=== PATIENT | female | born 1980 | race Two or more races ===

== ENCOUNTER 2024-03-26 12:06 | Emergency (ER) | payer MEDICAID, SELFPAY ==
[2024-03-26 12:08] VITALS: BP 132/78; PULSE 56; RESP 19; TEMP 36.7; O2SAT 98; BMI 31.6
--- NOTE | 2024-03-26 12:24 | EDNOTE_ITS ---
ED Abdominal Pain RME/HPI General Chief Complaint: Abdominal Pain Stated complaint: ABD PAIN Time seen by provider: 03/26/24 12:11 Arrival date/time: 03/26/24 12:06 This is a 43-year-old female who presents to the emergency department with complaints of right flank pain x 2 days. History of nephrolithiasis. Reports that yesterday she began to have some mild dysuria and suprapubic pain. And now has progressed to right flank pain. Reports was sent over by PCP. No fever, cough, shortness of breath, chest pain, chills, abdominal pain, diarrhea, hematochezia, melena, focal weakness, fall, blunt trauma, loss of consciousness, incontinence Source: patient Related Data Home Medications ?Medication ?Instructions ?Recorded ?Confirmed levothyroxine 125 mcg tablet 125 mcg PO DAILY 05/04/18 05/28/19 norgestimate-ethinyl estradiol 1 tab PO DAILY 05/04/18 05/28/19 0.18 mg/0.215mg/0.25mg-35 mcg(28)tablet (Tri-Sprintec (28)) clonazepam 0.5 mg tablet 0.5 mg PO BID 05/28/19 05/28/19 sertraline 50 mg tablet 50 mg PO QDAY 05/28/19 05/28/19 Previous Rx's ?Medication ?Instructions ?Recorded ibuprofen 800 mg tablet 800 mg PO TID PRN pain #30 tabs 05/28/19 ibuprofen 800 mg tablet 800 mg PO TID PRN pain #30 tabs 12/01/21 ondansetron 4 mg disintegrating 4 mg PO Q8H PRN nausea and 12/22/22 tablet vomiting #15 tabs cephalexin 500 mg capsule 1,000 mg (2 x 500 mg) PO Q8H 7 03/26/24 days #42 caps ibuprofen 800 mg tablet (IBU) 800 mg PO Q8H #20 tabs 03/26/24 tamsulosin 0.4 mg capsule (Flomax) 0.4 mg PO QDAY 5 days #5 caps 03/26/24 Allergies Allergy/AdvReac Type Severity Reaction Status Date / Time No Known Allergies Allergy Verified 12/21/22 21:13 Review of Systems Review of Systems Systems Reviewed: All systems reviewed, normal except as documented Narrative Review of Systems: Gen: No fever, no chills, no weight loss EYES: No discharge, no visual changes, no pain HEENT: No ear pain, no congestion, no sore throat PULM: No shortness of breath, no cough, no congestion CV: No chest pain, no dyspnea on exertion, no palpitations GI: No nausea, no vomiting, no diarrhea, no pain, no constipation : No frequency, no urgency,? no dysuria, + right flank pain Musc/skel: No joint pain, no back pain Skin: No rash? Psyc: No hallucinations, no depression Heme/Lymph: No easy bleeding or bruising tendencies Neuro: No weakness, no headache Past Medical History Past Medical History CARDIAC: Negative Congestive Heart Failure RESPIRATORY: Negative Chronic Obstructive Pulmonary Disease (COPD) GENITOURINARY: Negative Renal Disease ENDOCRINE: Positive Hypothyroidism; Negative Diabetes Mellitus Type 1 or Diabetes Mellitus Type 2 PSYCHO/SOCIAL: Positive Anxiety OTHER HISTORY: Positive Blood Transfusions Surgical History SURGICAL: Positive Abdominal Surgery (gallbladder removed) and Section Social History SMOKING STATUS: Never smoker SUBSTANCE USE: does not use ED Exam Narrative Physical exam: General: Sittiing in Exam table in no acute distress, answering questions appropriately HENT: normocephalic, atraumatic, EOMI, PERRLA, moist mucous membranes Chest: chest wall is nontender Cardiac: regular rate and rhythm, normal S1 and S2, no murmurs, rubs, or gallops, capillary refill ?2 seconds Pulmonary: clear to auscultation bilaterally, no wheezing, crackles, or rhonchi Abdominal: active bowel sounds, soft, nontender, nondistended, + mild right CVA tenderness Neuro: A&OX3, CN II-XII intact, sensation grossly intact bilaterally in UE and LE. Skin: no rashes, no ecchymosis Ext: no lower extremity edema Course Quality Measures none Orders Category Date Time Status CT abdomen pelvis wo con Stat Exams 03/26/24 12:23 Completed CBC Stat Lab 03/26/24 12:46 Completed Comprehensive Metabolic Panel Stat Lab 03/26/24 12:46 Completed HCG Qualitative,Urine Stat Lab 03/26/24 12:40 Completed Lipase Stat Lab 03/26/24 12:46 Completed Urinalysis Stat Lab 03/26/24 12:40 Completed Urine Culture Stat Lab 03/26/24 12:40 Received Ketorolac Inj [Toradol Inj] Med 03/26/24 13:49 Discontinued 60 mg IM X1 ONE Tamsulosin HCl [Flomax] Med 03/26/24 13:49 Discontinued 0.4 mg PO X1 ONE Vital Signs Vital signs: Vital Signs Temperature 98.1 F 03/26/24 12:08 Pulse Rate 56 L 03/26/24 12:08 Respiratory Rate 19 03/26/24 12:08 Blood Pressure 132/78 H 03/26/24 12:08 Pulse Oximetry (%) 98 03/26/24 12:08 Oxygen Delivery Method Room Air 03/26/24 12:08 Abdominal Pain MDM MDM Narrative MDM Narrative:: This is a 43-year-old female who presents to the emergency department with complaints of right flank pain x 2 days. History of nephrolithiasis. Reports that yesterday she began to have some mild dysuria and suprapubic pain. And now has progressed to right flank pain. Patient is not ill-appearing nontoxic. Vital signs stable no fever. Patient's labs reviewed no loose go cytosis or bandemia. Urinalysis but positive for gross hematuria however no WBCs. PT is positive for 2 mm stone with mild hydronephrosis. Pain medication and Flomax was given while in ED. The time of reevaluation patient is stable no pain patient will be discharged home with NSAID, Flomax and a prescription for antibiotics. Clearly advised to follow-up with her PCP and she might need a urology referral. Strict ER precautions given to return Patient data External records reviewed:: [facility] previous records Clinical information provided by:: patient Social determinants that could affect healthcare access:: none Patient has the following chronic illnesses:: Nephrolithiasis How is presenting disease/condition affected by chronic disease/condition?: exacerbated by Evaluation data The following diagnostics were reviewed and interpreted by me:: lab results and radiology exam(s) Lab and/or radiology exams considered but not ordered:: yes Interpretation Summary: Examination: CT abdomen and pelvis without contrast. Coronal 3-D reconstructions. Sagittal 2-D reconstructions. Date and time of exam:March 26, 2024 1334 hours Comparison January 15, 2023 INDICATIONS: Onset right-sided flank pain this morning, history 4 mm right renal calculus on CT study January 15, 2023 CTDI: vol (mGy): 8.61 DLP: (mGycm): 488 Technique: Axial images of the abdomen have been obtained, 3 mm slice thickness Intravenous contrast material has not been administered. Low dose protocols were performed. One or more of the following dose reduction techniques were used; automated exposure control, adjustment of the mA and/or KV according to patient size, use of iterative reconstruction technique. Findings: No focal liver or splenic lesions Absent gallbladder No pancreatic or adrenal mass 5 mm right renal calculus with depressed renal scar Minimal right hydronephrosis secondary to 2 mm distal right ureterovesical junction calculus Normal appendix No pelvic mass Bladder intact IMPRESSION: Minimal right hydronephrosis secondary to 2 mm distal right ureterovesical junction calculus Medications / Prescriptions Medications or Prescriptions considered but not ordered:: yes Medication administrations:: Medication Administration History Discontinued Medications Ketorolac Tromethamine (Ketorolac Inj 60 Mg/2 Ml Vial) 60 mg IM X1 ONE Stop: 03/26/24 13:50 Last Admin: 03/26/24 14:19 Dose: 60 mg Documented By: Tamsulosin HCl (Tamsulosin Hcl 0.4 Mg Capsule) 0.4 mg PO X1 ONE Stop: 03/26/24 13:50 Last Admin: 03/26/24 14:19 Dose: 0.4 mg Documented By: All medications administered and effective Consultations Consultation(s) initiated? (list below): No Diagnosis Differential diagnosis abdominal pain: abdominal pain, calculus of kidney, constipation, gastroenteritis, pancreatitis and other (Urinary tract infection) Most likely diagnosis given after review of the tests above:: Calculus of kidney with renal colic Admission Indicated Admission indicated?: not indicated Admission Request Was there a request for admission?: No Disposition Plan Disposition Plan: Discharge Discharge Attestation Discharge Attestation: The patient and all family members were given an opportunity to ask questions and understood the discharge instructions. Discharge instructions specifically effects, indications for sooner follow up or return to the emergency department, and the expected course of current diagnosis. Patient condition: Stable Discharge Plan Plan Patient Disposition: HOME (Self Care) Patient condition on transfer: Stable Prescriptions/Referrals Prescriptions/Med Rec: New tamsulosin [Flomax] 0.4 mg capsule 0.4 mg PO QDAY 5 Days Qty: 5 0RF ibuprofen [IBU] 800 mg tablet 800 mg PO Q8H Qty: 20 0RF cephalexin 500 mg capsule 1,000 mg PO Q8H 7 Days Qty: 42 0RF No Action norgestimate-ethinyl estradiol [Tri-Sprintec (28)] 0.18/0.215/0.25 mg-35 mcg (28) Tablet 1 tab PO DAILY levothyroxine 125 mcg Tablet 125 mcg PO DAILY ibuprofen 800 mg tablet 800 mg PO TID PRN (Reason: pain) Qty: 30 0RF clonazepam 0.5 mg Tablet 0.5 mg PO BID sertraline 50 mg Tablet 50 mg PO QDAY Rx Instructions: started feeling sick with sertraline ibuprofen 800 mg tablet 800 mg PO TID PRN (Reason: pain) Qty: 30 0RF ondansetron 4 mg tablet,disintegrating 4 mg PO Q8H PRN (Reason: nausea and vomiting) Qty: 15 0RF Referrals: Kevin([facility])Cuco NP [Primary Care Provider] - In 1 week Problem List Clinical Impression: Nephrolithiasis Patient/Caregiver Discharge Instructions Discharge Activity: activity as tolerated Education Materials: ED Kidney Stone w/ Colic Additional Instructions: CT demonstrates a very small 2 mm kidney stone. You will need to drink plenty of fluids, 2 medications were sent to pharmacy for pain and dilation for passing the stone. It is very important that you follow-up with your primary doctor 2 to 3 days for follow-up care. You will need a urology referral for follow-up care return to the emergency department this any worsening symptoms or change in condition Print Language: Faroese Stand Alone Forms: Milagros Award Info., Patient Portal Info Letter ANTHONY/CRYSTAL Supervising Physician ANTHONY/CRYSTAL Supervising Physician: Dr. Pena
[2024-03-26 13:01] LABS: Collection Type, Urine Clean Catch; WBC,Urine 0 /hpf (0-5)
[2024-03-26 13:02] LABS: Basophils % (Auto) 0 % (0-2.5); Eosinophils # (Auto) 0.1 Thou/mm3 (0.0-0.5); Eosinophils % (Auto) 1 % (0-10); Hematocrit 39.4 % (36.0-46.0); Hemoglobin 13.1 g/dL (12.0-16.0); Immature Granulocytes % (Auto) 0 % (0-0); Immature Granulocytes Auto 0.01 Thou/mm3 (0.00-0.00); Lymphocytes # (Auto) 3.1 Thou/mm3 (1.0-4.8); Lymphocytes % (Auto) 35 % (10-50); Mean Corpuscular HGB Conc 33.2 g/dl (31.0-37.0); Mean Corpuscular Hemoglobin 29.7 pg (25.0-35.0); Mean Corpuscular Volume 89 fL (80-100); Monocytes # (Auto) 0.8 Thou/mm3 (0.0-0.8); Monocytes % (Auto) 9 % (0-12); Neutrophils # (Auto) 4.9 Thou/mm3 (1.8-7.7); Neutrophils % (Auto) 55 % (37-80); Nucleated Red Blood Cell % 0 /100 WBC (0); Platelet Count 222 Thou/mm3 (140-440); Red Blood Count 4.41 Miln/mm3 (4.00-5.20); White Blood Count 8.9 Thou/mm3 (3.6-11.0)
[2024-03-26 13:21] LABS: Alanine Aminotransferase 16 U/L (10-49); Albumin, Serum 4.3 gm/dL (3.5-5.0); Albumin/Globulin Ratio 1.5 (1.2-2.2); Alkaline Phosphatase 105 U/L (46-116); Anion Gap 5 (7-16); BUN/Creatinine Ratio 14 Ratio (12-20); Bilirubin,Total 0.4 mg/dL (0.3-1.2); Blood Urea Nitrogen 11 mg/dL (9-23); Calcium 9.4 mg/dL (8.3-10.6); Calcium (Corrected) 9.4 mg/dL (8.5-10.1); Carbon Dioxide 27.1 mMol/L (20.0-31.0); Chloride 105 mMol/L (98-107); Creatinine (Component) 0.8 mg/dL (0.6-1.3); Estimated Creatinine Clearance 89.6 mL/min (>60); Globulin 2.9 gm/dL (2.3-3.5); Glucose 92 mg/dL (74-106); Lipase 30 U/L (12-53); Osmolality,Calculated 273 (275-295); Potassium 3.8 mMol/L (3.4-5.1); Sodium 137 mMol/L (136-145); Total Protein 7.2 gm/dL (5.7-8.2); eGFR > 60 See Note
[2024-03-26 13:22] LABS: HCG Qualitative,Urine Negative
[2024-03-26 13:33] LABS: Aspartate Amino Transferase < 10 U/L (0-34)
[2024-03-26 13:38] LABS: Bilirubin,Urine Negative (Negative); Blood,Urine 3+ (Negative); Color,Urine Yellow (Lt Yel-Yel); Glucose, Urine Negative (Negative); Ketones,Urine Negative (Negative); Leukocyte Esterase,Urine Negative (Negative); Nitrite,Urine Negative (Negative); Protein,Urine 1+ (Neg - Trace); RBC,Urine 793 /hpf (0-3); Squamous Epithelial Cell,Urine 5 /hpf (0-5); Urobilinogen,Urine Negative mg/dL (0.0-1.0)
[2024-03-26 13:48] LABS: Clarity,Urine Hazy (Clear/Hazy)
[2024-03-26] MEDS: KETOROLAC INJ 60 MG/2 ML VIAL IM (14:19)
[2024-03-26] MEDS: TAMSULOSIN HCL 0.4 MG CAPSULE PO (14:19)
== END 2024-03-26 15:13 | disposition home or self-care (01) ==
PROVIDERS: Nurse Practitioner Primary Care; Emergency Provider Emergency Medicine; PCP Nurse Practitioner Family
DX: N13.2 Hydronephrosis with renal and ureteral calculous obstruction (principal)
CPT/HCPCS: 36415; 74176; 80053; 81001; 81025; 83690; 85025; 87086; 96372; 99284; J1885; A9270

== ENCOUNTER → 2024-03-27 | Outpatient (CLI) | payer MEDICAID, SELFPAY ==
--- NOTE | 2024-03-27 | XR_ITS ---
Examination: Retroperitoneal ultrasound, complete Technique: Multiple high resolution grayscale images of the retroperitoneum obtained, including kidneys and bladder. Exam date and time:March 27, 2024 1118 hours INDICATIONS: Hematuria on laboratory examination yesterday, right flank pain intermittent one year FINDINGS: Right kidney 10.9 x 5.9 x 5.2 cm cortex 1.5 cm Left kidney 11.9 x 4.6 x 4.5 cm cortex 1.6 cm Mild bilateral renal parenchymal scar formation Right kidney midpole 11 mm calculus upper pole 5 mm calculus Left kidney upper pole 10 mm cyst No bladder mass or bladder calculi Bladder prevoid volume 106 cc IMPRESSION: Bilateral renal cortical thinning Mild bilateral renal parenchymal scar formation Nonobstructing right renal calculi
== END | disposition home or self-care (01) ==
LOC: CDIM 11:05
PROVIDERS: PCP Nurse Practitioner Family; Referring Provider Nurse Practitioner Family; Visit Provider Nurse Practitioner Family
DX: N28.89 Other specified disorders of kidney and ureter (principal); N20.0 Calculus of kidney
CPT/HCPCS: 76770

== ENCOUNTER → 2024-05-01 | Outpatient (BNVA) | payer MEDICAID, SELFPAY | END | disposition home or self-care (01) | PROVIDERS: PCP Nurse Practitioner Family; Referring Provider Nurse Practitioner Family; Visit Provider Urology | DX: N13.2 Hydronephrosis with renal and ureteral calculous obstruction (principal); Z98.84 Bariatric surgery status; Z87.442 Personal history of urinary calculi; E03.9 Hypothyroidism, unspecified; K21.9 Gastro-esophageal reflux disease without esophagitis; F41.9 Anxiety disorder, unspecified; G47.33 Obstructive sleep apnea (adult) (pediatric) | CPT/HCPCS: 81003; 99212; G0463 ==

== ENCOUNTER → 2024-10-02 | Outpatient (CLI) | payer MEDICAID, SELFPAY ==
--- NOTE | 2024-10-02 10:30 | XR_ITS ---
Examination: Breast ultrasound, unilateral, left complete Date and time of exam: 06/04/2024 1019 hours INDICATIONS: Left breast sonogram 12/28/2023 3:00 nodule 7 x 9 mm Technique: Real-time bauman scale ultrasonographic imaging performed left breast including all 4 quadrants as well as nipple retroareolar and axillary region. Findings: 2:00 cyst 5 x 5 mm 3:00 cyst 6 x 4 mm No solid nodules IMPRESSION: BI-RADS Category 2: Benign findings
--- NOTE | 2024-10-02 11:15 | XR_ITS ---
Examination: Diagnostic digital mammography, bilateral Computer aided detection 3-D breast Tomosynthesis, bilateral Date and time of exam: October 02, 2024 1027 hours INDICATIONS: Mammogram November 30, 2023 8 mm nodule inner upper left breast 12 mm focal asymmetry upper right breast MLO view Technique: Nonmagnified MLO, CC views of the breasts to been obtained, reconstructed from 3-D Tomosynthesis images. R2 computer aided detection program utilized for evaluation of suspicious masses and/or abnormal calcifications. 3-D Tomosynthesis images obtained. Findings: The breasts are heterogeneously dense, which may obscure small masses No left breast abnormality depicted Focal asymmetry 12:00 position right breast anterior depth,. Impression: BI-RADS Category 0: Incomplete: Need additional imaging evaluation Recommend right breast sonography follow-up to assess 12:00 focal asymmetry right breast.
== END | disposition home or self-care (01) ==
LOC: CDIM 10:11
PROVIDERS: Referring Provider Nurse Practitioner Family; Visit Provider Nurse Practitioner Family
DX: N64.89 Other specified disorders of breast (principal)
CPT/HCPCS: 76641; 77062; 77066; G0279

== ENCOUNTER 2024-10-30 17:36 | Emergency (ER) | payer MEDICAID, SELFPAY ==
[2024-10-30 17:36] VITALS: BMI 25.3
[2024-10-30 17:42] VITALS: BP 133/87; PULSE 98; RESP 18; TEMP 36.7; O2SAT 99
[2024-10-30 17:47] VITALS: BP 116/67; PULSE 90; RESP 18; TEMP 37.1; O2SAT 98
--- NOTE | 2024-10-30 17:51 | XR_ITS ---
Examination: Pelvic ultrasound, transabdominal, complete Technique: Transabdominal ultrasound of the pelvis performed using grayscale imaging Date and time of exam: October 30, 2024 8004 hours INDICATIONS: Pelvic pain and vaginal bleeding beginning 2 hours ago, uterine body and fundal areas of fibroid degeneration of pelvic sonogram June 12, 2023 FINDINGS: Uterus 9.0 cm, enlarging left fundal area of fibroid degeneration 3.1 x 2.6 x 2.5 cm Endometrial stripe 1.3 cm Right ovary 3.2 similar to flow Left ovary 4.7 cm arterial flow IMPRESSION: Enlarging area of fundal fibroid degeneration compared to the prior study, recommend continued 6 month follow up transvaginal pelvic sonography
--- NOTE | 2024-10-30 17:51 | PD.EDRME ---
Rapid Medical Screening Exam RME Arrival date/time: 10/30/24 17:36 43-year-old female presents to the Emergency Department today for complaints of vaginal spotting Chief Complaint: Vaginal Bleeding Vital signs: Vital Signs Temperature 98.1 F 10/30/24 17:42 Pulse Rate 98 10/30/24 17:42 Respiratory Rate 18 10/30/24 17:42 Blood Pressure 133/87 H 10/30/24 17:42 Pulse Oximetry (%) 99 10/30/24 17:42 Oxygen Delivery Method Room Air 10/30/24 17:42
[2024-10-30 18:05] LABS: Basophils # (Auto) 0.0 Thou/mm3 (0.0-0.2); Basophils % (Auto) 1 % (0-2.5); Eosinophils # (Auto) 0.1 Thou/mm3 (0.0-0.5); Eosinophils % (Auto) 1 % (0-10); Hematocrit 36.1 % (36.0-46.0); Hemoglobin 12.7 g/dL (12.0-16.0); Immature Granulocytes Auto 0.02 Thou/mm3 (0.00-0.00); Lymphocytes # (Auto) 3.1 Thou/mm3 (1.0-4.8); Lymphocytes % (Auto) 36 % (10-50); Mean Corpuscular HGB Conc 35.2 g/dl (31.0-37.0); Mean Corpuscular Hemoglobin 29.7 pg (25.0-35.0); Mean Corpuscular Volume 85 fL (80-100); Monocytes # (Auto) 0.7 Thou/mm3 (0.0-0.8); Monocytes % (Auto) 8 % (0-12); Neutrophils # (Auto) 4.6 Thou/mm3 (1.8-7.7); Neutrophils % (Auto) 54 % (37-80); Nucleated Red Blood Cell # 0.00 Thou/mm3 (0.00-0.00); Nucleated Red Blood Cell % 0 /100 WBC (0); Platelet Count 248 Thou/mm3 (140-440); RDW Standard Deviation 38.6 fL (36.4-46.3); Red Blood Count 4.27 Miln/mm3 (4.00-5.20); White Blood Count 8.5 Thou/mm3 (3.6-11.0)
[2024-10-30 18:25] LABS: Alanine Aminotransferase 8 U/L (10-49); Albumin, Serum 4.5 gm/dL (3.5-5.0); Albumin/Globulin Ratio 1.7 (1.2-2.2); Alkaline Phosphatase 83 U/L (46-116); Anion Gap 11 (7-16); Aspartate Amino Transferase 16 U/L (0-34); BUN/Creatinine Ratio 11 Ratio (12-20); Bilirubin,Total 0.7 mg/dL (0.3-1.2); Blood Urea Nitrogen 10 mg/dL (9-23); Calcium 9.8 mg/dL (8.3-10.6); Calcium (Corrected) 9.8 mg/dL (8.5-10.1); Carbon Dioxide 25.3 mMol/L (20.0-31.0); Chloride 104 mMol/L (98-107); Creatinine (Component) 0.9 mg/dL (0.6-1.3); Estimated Creatinine Clearance 71.5 mL/min (>60); Globulin 2.7 gm/dL (2.3-3.5); Glucose 93 mg/dL (74-106); Osmolality,Calculated 278 (275-295); Potassium 2.9 mMol/L (3.4-5.1); Sodium 140 mMol/L (136-145); Total Protein 7.2 gm/dL (5.7-8.2); eGFR > 60 See Note
[2024-10-30 18:26] LABS: INR 1.0 (0.9-1.3); Partial Thromboplastin Time 27.0 Seconds (22.0-36.0); Prothrombin Time 11.1 Seconds (9.0-12.2)
[2024-10-30 18:53] LABS: Collection Type, Urine Clean Catch
[2024-10-30 19:08] LABS: Bilirubin,Urine Negative (Negative); Blood,Urine 3+ (Negative); Clarity,Urine Clear (Clear/Hazy); Color,Urine Yellow (Lt Yel-Yel); Culture Indicated,Urine Not Indicated; Glucose, Urine Negative (Negative); Hyaline Casts,Urine < 1 /hpf (0-1); Ketones,Urine Negative (Negative); Leukocyte Esterase,Urine Positive (Negative); Nitrite,Urine Negative (Negative); PH,Urine 6.0 (5.0-7.0); Protein,Urine Trace (Neg - Trace); RBC,Urine 5 /hpf (0-3); Specific Gravity,Urine 1.022 (1.001-1.035); Squamous Epithelial Cell,Urine 7 /hpf (0-5); Urobilinogen,Urine Negative mg/dL (0.0-1.0); WBC,Urine 7 /hpf (0-5)
[2024-10-30 19:52] LABS: HCG Qualitative,Urine Negative
--- NOTE | 2024-10-30 20:32 | PD.EDVAGBL ---
ED OB Contraction Preg RMI/HPI General Chief complaint: Vaginal Bleeding Stated complaint: VAG BLEED Time Seen by Provider: 10/30/24 17:55 Arrival date/time: 10/30/24 17:36 RME / HPI RME / HPI Narrative: 43-year-old female patient with significant history of fibroids in the past, came in for evaluation regarding vaginal bleeding. Patient had 2 menses this month, today been having worsening bleeding, severity moderate. Patient denies any dizziness denies any other complaints. Patient is currently followed by an [employer] ENGINEER. Denies any pelvic pain. Patient is ambulatory Related Data Home Medications ?Medication ?Instructions ?Recorded ?Confirmed atorvastatin 40 mg tablet 40 mg PO QHS 05/01/24 05/01/24 calcium 600 mg (as carbonate)-vit tab PO QDAY 05/01/24 05/01/24 D3 10 mcg (400 unit) chewable tablet (Calcium 600 with Vitamin D3) levothyroxine 100 mcg capsule 100 mcg PO QDAY 05/01/24 05/01/24 magnesium 200 mg tablet 200 mg PO QDAY 05/01/24 05/01/24 omeprazole 20 mg capsule,delayed 20 mg PO QDAY 05/01/24 05/01/24 release tamsulosin 0.4 mg capsule 0.4 mg PO QHS 05/01/24 05/01/24 Allergies Allergy/AdvReac Type Severity Reaction Status Date / Time No Known Allergies Allergy Verified 10/30/24 17:38 Review of Systems Review of Systems Narrative Review of Systems: Review of system reviewed and within normal limits except mentioned in HPI ED Exam Narrative Physical exam: VITAL SIGNS: Reviewed. GENERAL APPEARANCE: Alert and interactive, follows commands, no acute distress, HEAD AND FACE: Non-traumatic. ENT: PERRL, pink conjunctivitis, eyelid no trauma, Mucous membrane moist. NECK: Supple, nontender, no nuchal rigidity. CHEST: No tenderness, no crepitus, no paradoxical movement, no retractions. LUNGS: Clear, well ventilated, symmetric, no rales, no wheezing, no ronchi, no stridor, good breath sounds bilaterally. HEART: Regular rate, regular rhythm, no murmur, no gallops. ABDOMEN: Soft, positive bowel sounds, nondistended, no guarding, nontender, no rebound, no masses, RECTAL: Deferred. GENITAL: Deferred. NEUROLOGICAL: Gross motor function intact sensory function intact, Appropriate for age. MUSCULOSKELETAL: low back nontender, full range of motion. EXTREMITIES: Nontender, full range of motion. SKIN: Color pink, dry, no rash, no lacerations, no abrasions, no contusions. LYMPHATICS: Deferred. Course Quality Measures none Orders Category Date Time Status US pelvic complete Stat Exams 10/30/24 17:51 Completed CBC Stat Lab 10/30/24 17:57 Completed Comprehensive Metabolic Panel Stat Lab 10/30/24 17:57 Completed HCG Qualitative,Urine Stat Lab 10/30/24 18:34 Completed PT [Prothrombin Time with INR] Stat Lab 10/30/24 17:57 Completed PTT [Partial Thromboplastin Time] Stat Lab 10/30/24 17:57 Completed UA, C/S IF [Urinalysis, C/S if Indicated] Stat Lab 10/30/24 18:34 Completed Potassium Chloride [K-Dur] Med 10/30/24 20:10 Discontinued 40 meq PO X1 ONE Vital Signs Vital signs: Vital Signs Temperature 98.1 F 10/30/24 17:42 Pulse Rate 98 10/30/24 17:42 Respiratory Rate 18 10/30/24 17:42 Blood Pressure 133/87 H 10/30/24 17:42 Pulse Oximetry (%) 99 10/30/24 17:42 Oxygen Delivery Method Room Air 10/30/24 17:42 Vaginal Bleeding MDM Narrative MDM Narrative: 43-year-old female patient with significant history of fibroids in the past, came in for evaluation regarding vaginal bleeding. Patient had 2 menses this month, today been having worsening bleeding, severity moderate. Patient denies any dizziness denies any other complaints. Patient is currently followed by an [employer]Y ENGINEER. Denies any pelvic pain. Patient is ambulatory Patient CBC showed no sign of leukocytosis, no sign of anemia. Potassium was noted to be 2.9. The rest of the labs unremarkable patient is not . Ultrasound of the pelvis showed Enlarging area of fundal fibroid degeneration compared to the prior study, recommend continued 6 month follow up transvaginal pelvic sonography Patient data External records reviewed:: None Clinical information provided by:: patient Social determinants that could affect healthcare access:: none Patient has the following chronic illnesses:: None How is presenting disease/condition affected by chronic disease/condition?: no chronic disease Evaluation data The following diagnostics were reviewed and interpreted by me:: lab results and radiology exam(s) Lab and/or radiology exams considered but not ordered:: None Interpretation Summary: See results MDM Medications / Prescriptions Medications or Prescriptions considered but not ordered:: None Medication administrations:: Medication Administration History Discontinued Medications Potassium Chloride (Potassium Chloride 20 Meq Tabcr) 40 meq PO X1 ONE Stop: 10/30/24 20:11 Last Admin: 10/30/24 20:26 Dose: 40 meq Documented By: Potassium replacement Consultations Consultation(s) initiated? (list below): No Diagnosis Vaginal Bleeding Differential Diagnosis: threatened , dysfunctional uterine bleeding and vaginal bleeding Most likely diagnosis given after review of the tests above:: Dysfunctional uterine Admission Indicated Admission indicated?: not indicated Admission Request Was there a request for admission?: No Disposition Plan Disposition Plan: Discharge Discharge Attestation Discharge Attestation: The patient and all family members were given an opportunity to ask questions and understood the discharge instructions. Discharge instructions specifically effects, indications for sooner follow up or return to the emergency department, and the expected course of current diagnosis. Patient condition: Stable Discharge Plan Plan Patient Disposition: HOME (Self Care) Discharge Disposition comment: Stable Prescriptions/Referrals Prescriptions/Med Rec: No Action levothyroxine 100 mcg capsule 100 mcg PO QDAY omeprazole 20 mg capsule,delayed release(DR/EC) 20 mg PO QDAY atorvastatin 40 mg tablet 40 mg PO QHS tamsulosin 0.4 mg capsule 0.4 mg PO QHS Calcium 600 with Vitamin D3 600 mg-10 mcg (400 unit) tablet,chewable PO QDAY magnesium 200 mg tablet 200 mg PO QDAY Referrals: Maria A Cabrera [Primary Care Provider] - In 1 week Problem List Clinical Impression: Dysfunctional uterine bleeding Patient/Caregiver Discharge Instructions Discharge Activity: activity as tolerated Education Materials: ED Dysfunctional Uterine Bleeding Additional Instructions: Thank you for the opportunity for serving you today. You are stable for discharged . You are advised to: Follow-up with your PCP in 1 to 2 days Return to ED for worsening of symptoms Increase oral fluids Follow-up closely with your [employer] ENGINEER Today your CBC showed no sign of anemia. Print Language: Cambodian Stand Alone Forms: Milagros Award Info., Patient Portal Info Letter PA/CRYSTAL Supervising Physician ANTHONY/CRYSTAL Supervising Physician: MD Becky
== END 2024-10-30 20:53 | disposition home or self-care (01) ==
PROVIDERS: Nurse Practitioner Primary Care; Emergency Provider Emergency Medicine; PCP Physician Assistant
DX: D25.9 Leiomyoma of uterus, unspecified (principal); N93.8 Other specified abnormal uterine and vaginal bleeding
CPT/HCPCS: 36415; 76856; 80053; 81001; 81025; 85025; 85610; 85730; 99283; A9270